=== PATIENT | female | born 1960 | race Caucasian/White ===

== ENCOUNTER 2022-06-08 22:44 | Emergency (ER) | payer OTHER ==
[2022-06-08] MEDS ORDERED: Pantoprazole 80 MG in Sodium Chloride 0.9% 100 ML IV SCH (23:45)
[2022-06-08] MEDS ORDERED: Pantoprazole 40 MG Vial IVPUSH ONE (23:51)
[2022-06-09 00:23] LABS: ESTIMATED GFR 97 mL/min (>60)
[2022-06-09] MEDS ORDERED: Ondansetron 4 MG/2 ML SDV IVPUSH ONE (00:38)
[2022-06-09] MEDS ORDERED: Magnesium Sulfate/Water 2 GM in Premix Bag 1 BAG IV ONE (00:44)
[2022-06-09 00:55] LABS: CORONAVIRUS COVID-19 NAA NEGATIVE (NEGATIVE)
[2022-06-09] MEDS ORDERED: Sodium Chloride 0.9% 250 ML ONE (01:18)
== END 2022-06-09 01:40 ==
LOC: JD.ED 22:44
DX: K92.2 Gastrointestinal hemorrhage, unspecified (principal); E83.42 Hypomagnesemia; E87.6 Hypokalemia; D64.9 Anemia, unspecified; R73.9 Hyperglycemia, unspecified; Z88.6 Allergy status to analgesic agent; Z87.891 Personal history of nicotine dependence; Z20.822 Contact with and (suspected) exposure to COVID-19
CPT/HCPCS: 0241U; 36415; 36430; 80053; 83690; 83735; 84484; 85025; 85610; 85730; 86850; 86900; 86901; 86922; 93005; 96365; 96368; 96375; 96376; 99285; C9113; J2405; J3475; P9016; P9017; 93010

== ENCOUNTER 2022-11-16 12:18 | Emergency (ER) | payer OTHER ==
[2022-11-16] MEDS ORDERED: Ondansetron 4 MG/2 ML SDV IVPUSH ONE (13:35)
[2022-11-16] MEDS ORDERED: Sodium Chloride 0.9% 10 ML Syringe FLUSH PRN (13:35)
[2022-11-16] MEDS ORDERED: Sodium Chloride 0.9% 1,000 ML IV ONE (13:35)
[2022-11-16] MEDS ORDERED: HYDROmorphone 1 MG/ML Syringe IVPUSH STA (13:36)
[2022-11-16 13:45] LABS: BASOPHILS ABSOLUTE AUTO 0.03 K/mm3 (0.01-0.08); BASOPHILS PERCENT AUTO 0.3 % (0.1-1.2); EOSINOPHILS ABSOLUTE AUTO 0.12 K/mm3 (0.04-0.36); EOSINOPHILS PERCENT AUTO 1.1 (0.7-5.8); HEMATOCRIT 47.7 % (34.1-44.9); IMMATURE GRAN ABSOLUTE AUTO 0.04 K/mm3 (0.00-0.10); IMMATURE GRAN PERCENT AUTO 0.4 % (<=1.0); LYMPHOCYTES ABSOLUTE AUTO 2.05 K/mm3 (1.18-3.74); LYMPHOCYTES PERCENT AUTO 19.1 % (19.3-51.7); MEAN CORPUSCULAR HEMOGLOBIN 29.4 pg (25.6-32.2); MEAN CORPUSCULAR HGB CONC 34.2 g/dl (32.2-35.5); MONOCYTES ABSOLUTE AUTO 1.51 K/mm3 (0.24-0.36); NEUTROPHILS ABSOLUTE AUTO 7.01 K/mm3 (1.56-6.13); NEUTROPHILS PERCENT AUTO 65.1 % (34.0-71.1); PLATELET COUNT,PLT 183 K/mm3 (182-369); RED BLOOD CELL COUNT 5.55 M/mm3 (3.98-5.22); WHITE BLOOD CELL COUNT,WBC 10.76 K/mm3 (3.98-10.04)
[2022-11-16 13:58] LABS: ALANINE AMINOTRANSFERASE,ALT 102 U/L (14-59); ALBUMIN 3.9 g/dl (3.4-5.0); ALKALINE PHOSPHATASE 84 U/L (46-116); ANION GAP 16.7 (5-15); ASPARTATE AMNIOTRANSFERASE,AST 46 U/L (15-37); BILIRUBIN TOTAL 0.5 mg/dL (0.2-1.0); BLOOD UREA NITROGEN,BUN 13 mg/dL (7-18); BUN/CREATININE RATIO 18.6 (14-18); C-REACTIVE PROTEIN <0.2 mg/dL (<1.0); CALCIUM 10.3 mg/dL (8.5-10.1); CARBON DIOXIDE,CO2 23 mEq/L (21-32); CHLORIDE,CL 101 mEq/L (98-107); CREATININE 0.7 mg/dL (0.55-1.02); EST CRCL DRUG DOSING (CG) 67.16 mL/min; ESTIMATED GFR 97 mL/min (>60); GAMMA GLUTAMYL TRANSFERASE,GGT 111 U/L (5-55); GLUCOSE RANDOM 141 mg/dL (70-99); LIPASE 200 U/L (73-393); MAGNESIUM 1.8 mg/dL (1.8-2.4); POTASSIUM,K 3.7 mEq/L (3.5-5.1); PROTEIN TOTAL,TP 7.9 g/dl (6.4-8.2); SODIUM,NA 137 mEq/L (136-145)
[2022-11-16] MEDS ORDERED: Iopamidol 612 MG/ML 100 ML Bottle IVPUSH ONE (13:59)
[2022-11-16 14:00] LABS: HEMOGLOBIN 16.3 gm/dl (11.2-15.7); MEAN CORPUSCULAR VOLUME 85.9 fl (79.4-94.8)
[2022-11-16] MEDS: Sodium Chloride 0.9% 10 ML Syringe FLUSH PRN ×2 (14:08→14:34)
[2022-11-16 14:15] LABS: SLIDE REVIEW ABNORMAL SMEAR
[2022-11-16 14:20] LABS: APPEARANCE,URINE CLEAR (Clear); BILIRUBIN,URINE NEGATIVE (Negative); COLOR,URINE YELLOW (Yellow); GLUCOSE,URINE NEGATIVE (Negative); KETONES,URINE NEGATIVE (Negative); LEUKOCYTE ESTERASE,URINE NEGATIVE (Negative); NITRITE,URINE NEGATIVE (Negative); OCCULT BLOOD,URINE NEGATIVE (Negative); PH,URINE 6.5 (5.0-8.0); PROTEIN,URINE 1+ (Negative); UROBILINOGEN,URINE 0.2 (0.2-1.0)
[2022-11-16 14:25] LABS: BACTERIA,URINE MODERATE /hpf (FEW); MUCUS,URINE MODERATE /hpf (FEW); RBC,URINE 0-5 /hpf (0-5); WBC,URINE 0-5 /hpf (0-5)
[2022-11-16 14:26] LABS: AMORPHOUS SEDIMENT,URINE FEW /hpf (NOT SEEN)
[2022-11-16] MEDS ORDERED: HYDROmorphone 0.5 MG/0.5 ML Syringe IVPUSH ONE (15:32)
== END 2022-11-16 16:35 | disposition home or self-care (01) ==
LOC: JD.ED 12:18
DX: R10.10 Upper abdominal pain, unspecified (principal); Z88.8 Allergy status to other drugs, medicaments and biological substances
CPT/HCPCS: 36415; 74177; 80053; 81001; 82977; 83690; 83735; 85025; 86140; 96361; 96374; 96375; 96376; 99284; J1170; J2405; J3490; J7030; Q9967